=== PATIENT | male | born 1995 | race Caucasian/White ===

== ENCOUNTER 2016-12-11 10:33 | Emergency (ER) | payer SELFPAY ==
[~2016-12-11] VITALS: Ht 180.3 cm; Wt 76.0 kg
[~2016-12-11 10:33] MED LIST: ALBU18HF INH
[2016-12-11 10:35] VITALS: BP 146/88
[2016-12-11] MEDS ORDERED: ALBUTEROL SULFATE 2.5 MG/3 ML NPPB ONE (11:00)
[2016-12-11] MEDS ORDERED: ALBUTEROL SULFATE 2.5 MG/3 ML ONE (11:20)
== END 2016-12-11 11:15 | disposition home or self-care (01) ==
LOC: ED 11:09
DX: J45.31 Mild persistent asthma with (acute) exacerbation (principal)
CPT/HCPCS: 71020; 93005; 94640; 99284; J7512; J7613